=== PATIENT | male | born 1945 | race Caucasian/White ===

== ENCOUNTER 2017-12-13 15:58 | Outpatient (REF) | payer MEDICARE, MEDICAID, SELFPAY ==
[2017-12-13 21:04] LABS: Abs Immature Grans 0.01 k/cumm (0.0-0.09); Absolute Basophil Count 0.05 k/cumm (0.0-0.2); Absolute Eosinophil Count 0.32 k/cumm (0.0-0.7); Absolute Monocyte Count 0.45 k/cumm (0.11-0.7); Absolute Neutrophil Count 2.33 k/cumm (1.2-6.7); Basophils % 1.1; Eosinophils % 6.9; HCT 29.7 % (40.0-50.0); HGB 9.1 g/dL (13.5-17.5); Immature Grans % 0.2; Lymphocytes % 32.2; Mean Corp. HGB Concentration 30.6 g/dL (32.0-36.0); Mean Corpuscular Hemoglobin 26.6 pg (27.0-33.0); Mean Corpuscular Volume 86.8 fL (80-95); Mean Platelet Volume 11.4 fL (8.0-11.0); Monocytes % 9.7; Neutrophils % 49.9; Platelet Count 190 x1000/uL (130-400); RBC 3.42 m/cumm (4.50-6.00); RBC Distribution Width 17.1 % (11.8-14.1); Reticulocyte 1.3 % (0.5-2.4); White Blood Cell Count 4.66 k/cumm (4.4-10.8)
[2017-12-13 21:35] LABS: ALT 43 U/L (12-78); AST 29 U/L (15-37); Albumin 2.8 g/dL (3.4-5.0); Alkaline Phosphatase 275 U/L (46-116); Anion Gap 9.8 mmol/L (3-11); BUN 33 mg/dL (7-18); Bilirubin, Total 0.3 mg/dL (0.2-1.0); CO2 26.2 mmol/L (21.0-32.0); CREATININE 1.64 mg/dL (0.70-1.30); Calcium 8.3 mg/dL (8.5-10.1); Chloride 105 mmol/L (98-107); Estimated GFR 41.39 (mL/min/1.73m2); Glucose 236 mg/dL (70-100); Potassium 4.3 mmol/L (3.5-5.1); Sodium 141 mmol/L (136-145)
[2017-12-13 21:40] LABS: Diff Comment RBC Morph Reviewed
[2017-12-13 21:41] LABS: Anisocytosis 1+; Hypochromasia 2+; Microcytosis 2+
== END 2017-12-13 15:59 ==
LOC: NCHCN 15:58
PROVIDERS: PCP Internal Medicine; Visit Provider Family Medicine
DX: N18.9 Chronic kidney disease, unspecified (principal); J90 Pleural effusion, not elsewhere classified; D64.9 Anemia, unspecified
CPT/HCPCS: 80053; 85025; 85045

== ENCOUNTER 2018-01-16 22:29 | Outpatient (REF) | payer MEDICARE, MEDICAID, SELFPAY ==
[2018-01-16 23:12] LABS: Abs Immature Grans 0.06 k/cumm (0.0-0.09); Absolute Basophil Count 0.02 k/cumm (0.0-0.2); Absolute Eosinophil Count 0.45 k/cumm (0.0-0.7); Absolute Lymphocyte Count 1.71 k/cumm (1.2-3.4); Absolute Monocyte Count 0.52 k/cumm (0.11-0.7); Absolute Neutrophil Count 3.54 k/cumm (1.2-6.7); Basophils % 0.3; Eosinophils % 7.1; HCT 29.1 % (40.0-50.0); HGB 9.1 g/dL (13.5-17.5); Lymphocytes % 27.1; Mean Corp. HGB Concentration 31.3 g/dL (32.0-36.0); Mean Corpuscular Hemoglobin 26.5 pg (27.0-33.0); Mean Corpuscular Volume 84.8 fL (80-95); Mean Platelet Volume 12.9 fL (8.0-11.0); Monocytes % 8.3; Neutrophils % 56.2; RBC 3.43 m/cumm (4.50-6.00)
[2018-01-16 23:26] LABS: ALT 24 U/L (12-78); AST 26 U/L (15-37); Albumin 3.3 g/dL (3.4-5.0); Alkaline Phosphatase 128 U/L (46-116); Anion Gap 7.4 mmol/L (3-11); BUN 25 mg/dL (7-18); Bilirubin, Total 0.5 mg/dL (0.2-1.0); CO2 26.6 mmol/L (21.0-32.0); CREATININE 1.63 mg/dL (0.70-1.30); Calcium 8.6 mg/dL (8.5-10.1); Chloride 106 mmol/L (98-107); Estimated GFR 41.68 (mL/min/1.73m2); Glucose 282 mg/dL (70-100); Potassium 4.9 mmol/L (3.5-5.1); Sodium 140 mmol/L (136-145); Total Protein 7.1 g/dL (6.4-8.2)
[2018-01-16 23:38] LABS: Diff Comment Diff Reviewed; RBC Morphology Normal
== END 2018-01-16 22:49 ==
LOC: NCHCN 22:29
PROVIDERS: PCP Internal Medicine; Visit Provider Internal Medicine
DX: E11.9 Type 2 diabetes mellitus without complications (principal); N18.9 Chronic kidney disease, unspecified; R60.9 Edema, unspecified; I10 Essential (primary) hypertension
CPT/HCPCS: 80053; 85025

== ENCOUNTER 2018-09-26 15:18 | Outpatient (REF) | payer MEDICARE, MEDICAID, SELFPAY ==
[2018-09-26 22:01] LABS: Anion Gap 11.8 mmol/L (3-11); BUN 27 mg/dL (7-18); CO2 24.2 mmol/L (21.0-32.0); CREATININE 1.63 mg/dL (0.70-1.30); Calcium 8.9 mg/dL (8.5-10.1); Chloride 102 mmol/L (98-107); Estimated GFR 41.56 (mL/min/1.73m2); Glucose 324 mg/dL (70-100); Sodium 138 mmol/L (136-145)
== END 2018-09-26 15:38 ==
LOC: NCHCN 15:18
PROVIDERS: PCP Registered Nurse; Visit Provider Registered Nurse
DX: E11.65 Type 2 diabetes mellitus with hyperglycemia (principal)
CPT/HCPCS: 80048

== ENCOUNTER 2019-02-07 15:21 | Outpatient (REF) | payer MEDICARE, MEDICAID, SELFPAY ==
[2019-02-07 21:15] LABS: Anion Gap 9.4 mmol/L (3-11); BUN 37 mg/dL (7-18); CO2 25.6 mmol/L (21.0-32.0); CREATININE 1.79 mg/dL (0.70-1.30); Chloride 104 mmol/L (98-107); Estimated GFR 37.31 (mL/min/1.73m2); Glucose 197 mg/dL (70-100); Potassium 4.3 mmol/L (3.5-5.1); Sodium 139 mmol/L (136-145)
[2019-02-07 21:22] LABS: Calcium 8.7 mg/dL (8.5-10.1)
== END 2019-02-07 15:41 ==
LOC: NCHCN 15:21
PROVIDERS: PCP Registered Nurse; Visit Provider Registered Nurse
DX: E11.65 Type 2 diabetes mellitus with hyperglycemia (principal)
CPT/HCPCS: 80048

== ENCOUNTER 2019-02-26 15:10 | Outpatient (REF) | payer MEDICARE, MEDICAID, SELFPAY ==
[2019-02-26 23:19] LABS: Anion Gap 12.1 mmol/L (3-11); BUN 50 mg/dL (7-18); CO2 25.9 mmol/L (21.0-32.0); CREATININE 2.29 mg/dL (0.70-1.30); Calcium 8.9 mg/dL (8.5-10.1); Chloride 102 mmol/L (98-107); Estimated GFR 28.08 (mL/min/1.73m2); Glucose 309 mg/dL (70-100); Potassium 4.4 mmol/L (3.5-5.1); Sodium 140 mmol/L (136-145)
== END 2019-02-26 15:30 ==
LOC: NCHCN 15:10
PROVIDERS: PCP Registered Nurse; Visit Provider Registered Nurse
DX: I10 Essential (primary) hypertension (principal); E11.65 Type 2 diabetes mellitus with hyperglycemia
CPT/HCPCS: 80048

== ENCOUNTER 2019-03-08 21:22 | Outpatient (REF) | payer MEDICARE, MEDICAID, SELFPAY ==
[2019-03-08 21:46] LABS: Anion Gap 11.5 mmol/L (3-11); BUN 47 mg/dL (7-18); CO2 25.5 mmol/L (21.0-32.0); CREATININE 2.42 mg/dL (0.70-1.30); Calcium 9.4 mg/dL (8.5-10.1); Chloride 103 mmol/L (98-107); Estimated GFR 26.34 (mL/min/1.73m2); Glucose 292 mg/dL (70-100); Potassium 4.2 mmol/L (3.5-5.1); Sodium 140 mmol/L (136-145)
== END 2019-03-08 21:42 ==
LOC: NCHCN 21:22
PROVIDERS: PCP Registered Nurse; Visit Provider Registered Nurse
DX: N18.9 Chronic kidney disease, unspecified (principal)
CPT/HCPCS: 80048

== ENCOUNTER 2019-03-13 12:36 | Outpatient (REF) | payer MEDICARE, MEDICAID, SELFPAY ==
[2019-03-13 21:23] LABS: Anion Gap 13.1 mmol/L (3-11); BUN 48 mg/dL (7-18); CO2 21.9 mmol/L (21.0-32.0); CREATININE 2.39 mg/dL (0.70-1.30); Chloride 103 mmol/L (98-107); Estimated GFR 26.72 (mL/min/1.73m2); Glucose 329 mg/dL (70-100); Potassium 4.5 mmol/L (3.5-5.1); Sodium 138 mmol/L (136-145)
== END 2019-03-13 12:56 ==
LOC: NCHCN 12:36
PROVIDERS: PCP Registered Nurse; Visit Provider Registered Nurse
DX: N18.9 Chronic kidney disease, unspecified (principal)
CPT/HCPCS: 80048

== ENCOUNTER 2019-04-16 10:30 | Outpatient (REF) | payer MEDICARE, MEDICAID, SELFPAY ==
[2019-04-16 21:21] LABS: Anion Gap 9.5 mmol/L (3-11); BUN 35 mg/dL (7-18); CO2 26.5 mmol/L (21.0-32.0); CREATININE 1.94 mg/dL (0.70-1.30); Calcium 9.1 mg/dL (8.5-10.1); Chloride 103 mmol/L (98-107); Glucose 247 mg/dL (74-106); Potassium 4.4 mmol/L (3.5-5.1); Sodium 139 mmol/L (136-145)
[2019-04-16 21:58] LABS: Hemoglobin A1C 9.6 % (4.5-6.2)
== END 2019-04-16 10:50 ==
LOC: NCHCN 10:30
PROVIDERS: PCP Registered Nurse; Visit Provider Registered Nurse
DX: E11.65 Type 2 diabetes mellitus with hyperglycemia (principal); N18.9 Chronic kidney disease, unspecified
CPT/HCPCS: 80048; 83036

== ENCOUNTER 2019-11-13 13:11 | Outpatient (REF) | payer MEDICARE, MEDICAID, SELFPAY ==
[2019-11-13 21:41] LABS: Anion Gap 9.4 mmol/L (3-11); BUN 32 mg/dL (7-18); CO2 27.6 mmol/L (21.0-32.0); CREATININE 1.85 mg/dL (0.70-1.30); Calcium 9.1 mg/dL (8.5-10.1); Chloride 100 mmol/L (98-107); Estimated GFR 35.82 (mL/min/1.73m2); Glucose 192 mg/dL (74-106); Potassium 4.1 mmol/L (3.5-5.1); Sodium 137 mmol/L (136-145)
[2019-11-13 21:42] LABS: Hemoglobin A1C 7.2 % (3.8-5.6)
== END 2019-11-13 13:31 ==
LOC: NCHCN 13:11
PROVIDERS: PCP Registered Nurse; Visit Provider Registered Nurse
DX: I10 Essential (primary) hypertension (principal); E11.65 Type 2 diabetes mellitus with hyperglycemia; N18.9 Chronic kidney disease, unspecified
CPT/HCPCS: 80048; 83036

== ENCOUNTER 2020-06-15 23:26 | Outpatient (REF) | payer MEDICARE, MEDICAID, SELFPAY ==
[2020-06-15 21:22] LABS: Abs Immature Grans 0.01 10^3/uL (0.0-0.06); Absolute Basophil Count 0.05 10^3/uL (0.0-0.2); Absolute Eosinophil Count 0.13 10^3/uL (0.0-0.7); Absolute Lymphocyte Count 1.59 10^3/uL (1.2-3.4); Absolute Monocyte Count 0.37 10^3/uL (0.1-0.8); Absolute Neutrophil Count 2.11 10^3/uL (1.2-6.7); Basophils % 1.2; Eosinophils % 3.1; HCT 38.6 % (40.0-50.0); HGB 12.9 g/dL (13.5-17.5); Immature Grans % 0.2; Lymphocytes % 37.3; MCH 31.1 pg (27.0-33.0); MCHC 33.4 % (32.0-36.0); MPV 10.9 fL (8.0-11.0); Monocytes % 8.7; Neutrophils % 49.5; Nucleated RBC 0 %; Platelet Count 124 10^3/uL (130-400); RBC 4.15 10^6/uL (4.36-5.78); RDW 13.7 % (11.8-14.1); RDW-SD 45.9 fL; WBC 4.26 10^3/uL (4.4-10.8)
[2020-06-15 21:42] LABS: Hemoglobin A1C 6.6 % (<5.7)
[2020-06-15 21:56] LABS: ALT 20 U/L (16-63); AST 21 U/L (15-37); Albumin 3.2 g/dL (3.4-5.0); Alkaline Phosphatase 104 U/L (46-116); Anion Gap 4.6 mmol/L (3-11); BUN 21 mg/dL (7-18); Bilirubin, Total 1.1 mg/dL (0.2-1.0); CO2 29.4 mmol/L (21.0-32.0); CREATININE 1.6 mg/dL (0.70-1.30); Calcium 8.5 mg/dL (8.5-10.1); Chloride 102 mmol/L (98-107); Estimated GFR 42.35 (mL/min/1.73m2); Glucose 144 mg/dL (74-106); Potassium 4.1 mmol/L (3.5-5.1); Sodium 136 mmol/L (136-145); Vitamin B12 420 pg/mL (193-986)
[2020-06-15 22:10] LABS: Total Protein 6.3 g/dL (6.4-8.2)
== END 2020-06-15 23:46 ==
LOC: LBN 23:26
PROVIDERS: PCP Registered Nurse; Visit Provider Registered Nurse
DX: E11.22 Type 2 diabetes mellitus with diabetic chronic kidney disease (principal); I12.9 Hypertensive chronic kidney disease with stage 1 through stage 4 chronic kidney disease, or unspecified chronic kidney disease; F01.50 Vascular dementia, unspecified severity, without behavioral disturbance, psychotic disturbance, mood disturbance, and anxiety; N18.9 Chronic kidney disease, unspecified
CPT/HCPCS: 80053; 82607; 83036; 85025